=== PATIENT | female | born 2000 | race Caucasian/White ===

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

== ENCOUNTER 2019-03-10 21:22 | Emergency (ER) | payer OTHER ==
[~2019-03-10] VITALS: Ht 162.5 cm; Wt 105.7 kg
--- NOTE | ~2019-03-10 | EKG ---
[place], [place] ELECTROCARDIOGRAM REPORT NAME: NADEEM LIND UNIT #: [id number] ROOM: DOCTOR: EPIPHANY DRAFT REPORT BIRTHDATE: [birth year] [facility] Test Date: 2019-03-10 Test Time: 21:50:15 Pat Name: NADEEM LIND Department: Room: Gender: F Senior Safety Support Manager: : 2000 Requested By: CARLOS RODRIGUEZ Order Number: [id number] Reading MD: Ayde Dacosta MD Measurements Intervals [place] Rate: 79 P: 16 WI: 146 QRS: 42 QRSD: 90 T: 55 QT: 362 QTc: 416 Interpretive Statements Sinus rhythm ,Normal ECG Compared to ECG 11/10/2018 18:09:28 No significant changes Electronically Signed On 03-11-2019 9:14:36 PDT by Ayde Dacosta MD CM:EKGRPT:ELECTROCARDIOGRAM REPORT [id number] CARLOS TEAGUE DRAFT REPORT CARLOS RODRIGUEZ DO
[~2019-03-10 21:22] MED LIST changes: +ALLEGRA-D 24 H1 EACH PO; +AUGMENTIN 875875 MG PO; +FLONASE ALLERG9.9 ML NAS
[2019-03-10 21:48] LABS: BASO % 0.3 % (0.0-1.0); EOS # 0.3 10*3/uL (0.0-0.4); EOS % 2.1 % (1.0-4.0); HEMATOCRIT 41.5 % (37.0-47.0); HEMOGLOBIN 13.6 g/dl (12.0-16.0); LYMPH # 3.3 10*3/uL (1.3-4.4); LYMPH % 26.8 % (27.0-41.0); MEAN CELL VOLUME 87.4 fl (81.0-99.0); MEAN CORPUSCULAR HGB 28.6 pg (27.0-31.0); MEAN CORPUSCULAR HGB CONC 32.8 g/dl (33.0-37.0); MEAN PLATELET VOLUME 10.9 fl (9.6-12.3); MONO # 0.7 10*3/uL (0.1-1.0); MONO % 5.6 % (3.0-9.0); NEUT # 7.9 10*3/uL (2.3-7.9); NEUT % 64.9 % (47.0-73.0); PLATELET COUNT AUTOMATED 283 10*3/uL (130-400); RED BLOOD COUNT 4.75 10*6/uL (4.10-5.10); RED CELL DISTRI WIDTH 12.7 % (0-14.5); WHITE BLOOD COUNT 12.2 10*3/uL (4.8-10.8)
[2019-03-10 22:06] LABS: ALBUMIN 3.5 gm/dl (3.1-4.5); ALKALINE PHOSPHATASE 85 U/L (45-117); BETA-HCG, QUANT < 1.0 mIU/mL (1-3); BUN 12 mg/dl (7-24); CHLORIDE 108 mmol/L (98-107); CREATININE 0.74 mg/dL (0.55-1.02); POTASSIUM 3.6 mmol/L (3.5-5.1); SGOT/AST 17 IU/L (3-35); SGPT/ALT 24 U/L (12-78); SODIUM 141 mmol/L (136-145); TROPONIN I < 0.015 ng/ml (<0.045)
== END 2019-03-10 23:10 | disposition home or self-care (01) ==
LOC: ED 21:22
PROVIDERS: Student in an Organized Health Care Education/Training Program
DX: M43.6 Torticollis (principal)

== ENCOUNTER 2019-04-22 06:11 | Emergency (ER) | payer OTHER ==
[~2019-04-22] VITALS: Ht 162.5 cm; Wt 80.7 kg
[2019-04-22] MEDS ORDERED: ZITHROMAX250 MG PO (08:32)
== END 2019-04-22 09:10 | disposition home or self-care (01) ==
LOC: ED 06:11
DX: J40 Bronchitis, not specified as acute or chronic (principal)

== ENCOUNTER 2019-06-17 11:34 | Emergency (ER) | payer OTHER ==
[~2019-06-17] VITALS: Ht 162.5 cm; Wt 103.4 kg
[2019-06-17] MEDS ORDERED: PREDNISONE50 MG PO (13:37)
== END 2019-06-17 13:46 | disposition home or self-care (01) ==
LOC: ED 11:34
DX: J40 Bronchitis, not specified as acute or chronic (principal); M54.9 Dorsalgia, unspecified; F17.200 Nicotine dependence, unspecified, uncomplicated

== ENCOUNTER 2019-06-20 15:18 | Inpatient (IN) | payer OTHER ==
[~2019-06-20] VITALS: Ht 162.6 cm; Wt 106.7 kg
--- NOTE | ~2019-06-20 | PR ---
[place], [place] PROGRESS NOTE NAME: NADEEM LIND UNIT #: [id number] ROOM: 401 DOCTOR: RONIT LOCO MD BIRTHDATE: [birth year] DOS: 06/22/2019 SUBJECTIVE: The patient was noted with symptoms of coughing, chest pain, and sputum expectoration. She has been noted comfortable at this time, resting on the bed. Wheezing and shortness of breath and cough has been improving. Complaining of some pain with cough at lower portion of the chest wall, which is a muscular pain. OBJECTIVE: VITAL SIGNS: Noted normal temperature, respiratory rate of 18, heart rate of 67, blood pressure 111/64. Pulse oxygen saturation, rest on room air is 96% saturation. HEENT: Examination shows head was atraumatic. Eyes nonicterus. NECK: Supple. CARDIOVASCULAR: S1, S2 audible. LUNGS: Noted moderate decreased breath sounds, expiratory wheezing, no crackles. ABDOMEN: Soft and obese. EXTREMITIES: The patient without any edema. LABORATORY DATA: CBC: WBC count 13,000, remaining CBC was normal. BMP was noted normal BUN and creatinine. IMPRESSION: 1. The patient without any evidence of deep venous thromboembolism. At this time, the D-dimer to be done yesterday noted negative, which is attached to exclude any significant thromboembolism. 2. Acute exacerbation of bronchial asthma and bronchitis. 3. Chronic obesity. 4. Nicotine dependence. PLAN OF MANAGEMENT: Current plan of management we will continued for the next 24 hours. Consider discharge in the morning possibly on oral tapering dose of steroids as well as Other medications. In the meantime, no change in plan will be needed. [place], [place] PROGRESS NOTE NAME: NADEEM LIND UNIT #: [id number] ROOM: 401 DOCTOR: RONIT LOCO MD BIRTHDATE: [birth year] RONIT PAUL MD CM:PNTRANS [id number] RONIT BEATTY MD 06/22/19 1518 interface
--- NOTE | ~2019-06-20 | PR ---
[place], [place] PROGRESS NOTE NAME: NADEEM LIND UNIT #: [id number] ROOM: 401 DOCTOR: BEVERLY BEATTY MD,RONIT BIRTHDATE: [birth year] DOS: 06/24/2019 SUBJECTIVE: The patient remains comfortable at this time, resting on the bed. Coughing has been noted with gradual reduction. The chest pain has been decreasing. There were no symptoms of fever or chills or any hemoptysis. OBJECTIVE: VITAL SIGNS: Normal temperature, respiratory rate 18, heart rate 99, blood pressure 133/50. The pulse oxygen saturation at rest on room air 98% saturation. HEENT: Examination shows head was atraumatic. Eyes nonicterus. NECK: Supple. CARDIOVASCULAR: S1, S2 audible. LUNGS: Mild expiratory wheezing, no crackles. ABDOMEN: Soft, obese, nontender. Bowel sounds present. EXTREMITIES: No changes. LABORATORY DATA: CBC: WBC count 17.8, hemoglobin and hematocrit normal, platelet count normal. BMP this morning is normal. IMPRESSION: Stable respiratory status with favorable improvement, continue acute exacerbation of bronchial asthma, acute bronchitis. PLAN OF MANAGEMENT: No changes in the plan of management. Discharge planning as per primary care attending. Supportive therapy, usual medical management. Outpatient recommended post-discharge to the patient. RONIT PAUL MD CM:PNTRANS [id number] RONIT BEATTY MD 06/24/19 1247 interface
--- NOTE | ~2019-06-20 | PR ---
[place], [place] PROGRESS NOTE NAME: NADEEM LIND UNIT #: [id number] ROOM: 401 DOCTOR: BEVERLY BEATTY MD,RONIT BIRTHDATE: [birth year] DOS: 06/23/2019 PULMONARY PROGRESS NOTE SUBJECTIVE: She has been noted comfortable, still complaining of pain with the cough. The symptom of the patient's respiratory tract have been gradually improving at the present time. There were no symptoms of chest pain, fever or chills stated by the patient. There were no symptoms of hemoptysis. PHYSICAL EXAMINATION: GENERAL: The patient is sitting comfortably in the bed this morning of assessment. VITAL SIGNS: Normal temperature, respiratory rate 18, heart rate 77, blood pressure 113/71. Pulse ox saturation at rest on room air was 97% saturation recorded. HEENT: Examination shows head was atraumatic. Eyes nonicterus. NECK: Supple. CARDIOVASCULAR: S1, S2 is audible. LUNGS: The patient noted mild expiratory wheezing, no crackles. ABDOMEN: Soft, obese, nontender. Bowel sounds present. EXTREMITIES: No new change. IMPRESSION: 1. The patient with gradual progressive resolution of acute exacerbation of bronchial asthma and acute bronchitis noted at this time. 2. Musculoskeletal chest pain with cough as well. 3. History of nicotine abuse. PLAN OF MANAGEMENT: The patient could be considered home discharge today on tapering prednisone and other medications. Outpatient followup suggested post-discharge. RONIT PAUL MD CM:PNTRANS [id number] RONIT BEATTY MD 06/23/19 1248 interface
--- NOTE | ~2019-06-20 | EKG ---
[place], [place] ELECTROCARDIOGRAM REPORT NAME: NADEEM LIND UNIT #: [id number] ROOM: 401 DOCTOR: EPIPHANY DRAFT REPORT BIRTHDATE: [birth year] [facility] Test Date: 2019-06-20 Test Time: 15:53:49 Pat Name: NADEEM LIND Department: Room: 401 Gender: F Small Business Representative: : 2000 Requested By: RYAN KENDALL DNP Order Number: [id number] Reading MD: Raul Bauer MD Measurements Intervals [place] Rate: 122 P: 65 [place]: 148 QRS: 34 QRSD: 78 T: 32 QT: 333 QTc: 475 Interpretive Statements Sinus tachycardia Borderline T wave abnormalities Compared to ECG 03/10/2019 21:50:15 T-wave abnormality now present Sinus rhythm no longer present Electronically Signed On 06-23-2019 13:01:03 PDT by Raul Bauer MD CM:EKGRPT:ELECTROCARDIOGRAM REPORT [id number] RYAN KENDALL DNP EPIPHANY DRAFT REPORT RYAN KENDALL DNP
--- NOTE | ~2019-06-20 | CON ---
[place], [place] REPORT OF CONSULTATION NAME: NADEEM LIND UNIT #: [id number] ROOM: 401 DOCTOR: RONIT LOCO MD BIRTHDATE: [birth year] DOS: 06/21/2019 CONSULTATION REQUESTED BY: Hospitalist service. REASON FOR CONSULTATION: For assessment of possibility of pulmonary embolism and abnormal respiratory symptoms. HISTORY OF PRESENT ILLNESS: This is a 18-year-old female patient who has been treated by the primary care physician for possibility of bronchitis or other respiratory problems with antibiotics and other medical management. The patient was seen in the Emergency Room as outpatient on 06/17/2019 as stated with bronchitis. The symptoms had been noted gradually worsen. The patient did not respond to the outpatient treatment provided in the Emergency Room assessment as well per primary care physician. She developed significant shortness of breath with excessive chest congestion and cough with small amount of sputum expectoration, wheezing, tightness in the chest. Did not report any symptoms of chest pain. Denies any pain of the lower extremity ____. The patient had a CTA of the chest done as well because of tachycardia, which has been reported as pulmonary embolism in subsegmental branches cannot be excluded. REVIEW OF SYSTEMS: CONSTITUTIONAL SYMPTOMS: Fatigue and tiredness noted without any symptoms of fever or chills. EYES: Denies any burning, redness, or tenderness. EARS, NOSE, THROAT, EARS, NOSE, THROAT SYMPTOMS: No sore throat, hoarseness, otalgia, postnasal drainage or epistaxis. CARDIOVASCULAR: Denies anginal pain, edema, pain of the lower extremities. GASTROINTESTINAL: Denies dysphagia, nausea, vomiting, diarrhea, abdominal pain, hematemesis, melena, or hematochezia. SKIN: Denies any lesions or rashes. CENTRAL NERVOUS SYSTEM: No dizziness, headache, diplopia or syncopal episode. Remaining systems were reviewed. They were noted all negative. PAST MEDICAL HISTORY: 1. Known as history of recurrent bronchitis. 2. Morbid obesity. 3. Anxiety disorder. 4. History of scabies. 5. Nicotine dependence. PAST SURGICAL HISTORY: Noted none major. SOCIAL HISTORY: The patient noted tobacco use for the last 3 years, 1 pack of cigarettes per day. She is not , does not have any children. FAMILY HISTORY: The patient's father patient known with history of bronchial asthma and mother with diagnosis of COPD. HOME MEDICATIONS: Noted as use of ProAir HFA inhaler p.r.n. use. [place], [place] REPORT OF CONSULTATION NAME: NADEEM LIND UNIT #: [id number] ROOM: [facility] DOCTOR: BEVERLY BEATTY MD,RONIT BIRTHDATE: [birth year] CURRENT MEDICATIONS: Administered on this hospitalization reviewed as use of Lovenox for DVT prophylaxis ____ Solu-Medrol 40 mg b.i.d., albuterol sulfate nebulizers q.i.d., Mucinex 1200 mg p.o. b.i.d., DuoNeb every 6 hours, doxycycline intravenously and other p.r.n. meds. DRUG ALLERGIES: Noted no known drug allergies. PHYSICAL EXAMINATION: GENERAL: This is a 18-year-old female patient noted comfortably sitting on the bed without any distress. Height of 5 feet 4 inches, weight of 235 pounds, BMI 40.4. VITAL SIGNS: Normal temperature since admission, respiratory rate 16-20, heart rate of 111-76, blood pressure 122/77-126/54. The pulse oxygen saturation recorded at rest on room air 95-100% saturation. HEENT: Head was atraumatic. Eyes nonicterus. NECK: Supple. Decreased posterior pharyngeal space, high tongue with guarding soft tissue structures. CARDIOVASCULAR: S1, S2 audible. LUNGS: Decreased breath sounds, mild expiratory wheezing in the lungs bilaterally. ABDOMEN: Soft and obese. Bowel sounds present. EXTREMITIES: No edema, clubbing, cyanosis. MUSCULOSKELETAL: Without acute deformities. CENTRAL NERVOUS SYSTEM: Grossly intact. LABORATORY DATA: CBC that was done yesterday in the emergency room, WBC count 13.9, hemoglobin and hematocrit was normal. Eosinophils are 2.9%. CMP that was done on 06/20/2019, normal BUN and creatinine and other electrolytes as well. Troponin was normal. PT/PTT normal. Lactic acid normal yesterday. CBC this morning, WBC count 12.4, hemoglobin and hematocrit normal, platelet count normal. CMP with normal BUN and creatinine, glucose 123. PT/PTT were normal. The chest x-ray that was done yesterday in the Emergency Room, 2-view, noted clear of any acute pulmonary filtration other abnormalities. The chest x-ray 06/17/2019 during her ER assessment was also noted as no acute pulmonary abnormalities. CTA of the chest was noted without any evidence of gross pulmonary embolism, questionable patient artifact. The patient had a pulmonary embolism, lower pulmonary artery branch reported by the radiologist report personally reviewed was not noting any convincing, finding of acute pulmonary embolism as well. IMPRESSION: 1. The patient will be currently admitted to the hospital with a finding consistent with acute asthmatic bronchitis with bronchial asthma, acute exacerbation, failed to respond to the outpatient treatment. 2. Pulmonary embolism stated by the patient appeared to be less likely with current clinical history and physical examination with assessment. Mild hyperglycemia related to corticosteroid, chronic nicotine dependence by history as well. [place], [place] REPORT OF CONSULTATION NAME: NADEEM LIND UNIT #: [id number] ROOM: [facility] DOCTOR: BEVERLY BEATTY MD,RONIT BIRTHDATE: [birth year] PLAN OF MANAGEMENT: Agree with the use of bronchodilators and oxygen supplementation if necessary. Maintain pulse ox 90% or greater. Continuation of Solu-Medrol at the same dose. IV doxycycline, which was ordered does not need intravenous use or should medications should suffice. The tachycardia will resolve patient progressively with resolution of acute exacerbation of bronchial asthma. Counseling about tobacco cessation was done. DVT prophylaxis will be continued. D-dimer will be obtained to basically exclude any thromboembolic disease. The positive D-dimer would not be of any benefit. The patient was not recommended to be started on therapeutic anticoagulation unless the diagnosis of thromboembolism is proven with additional assessment as necessary. The assessment and management discussed with the patient's mother as well in detail in the room. Supportive therapy, plan of management additional treatment changes will be made for this patient based on progression of her illness. Thanks for allowing me to participate in the care of this patient. RONIT PAUL MD CM:CONSTR:REPORT OF CONSULTATION 162 06/21/191958 interface
[~2019-06-20 15:18] MED LIST changes: +PREDNISONE50 MG PO
[2019-06-20 15:21] VITALS: BP 123/77
[2019-06-20 15:46] LABS: BASO % 0.2 % (0.0-1.0); EOS # 0.4 10*3/uL (0.0-0.4); EOS % 2.9 % (1.0-4.0); HEMATOCRIT 45.5 % (37.0-47.0); LYMPH # 1.7 10*3/uL (1.3-4.4); LYMPH % 12.2 % (27.0-41.0); MEAN CELL VOLUME 88.9 fl (81.0-99.0); MEAN CORPUSCULAR HGB 29.3 pg (27.0-31.0); MEAN PLATELET VOLUME 10.9 fl (9.6-12.3); MONO # 0.8 10*3/uL (0.1-1.0); MONO % 5.5 % (3.0-9.0); NEUT % 78.8 % (47.0-73.0); PLATELET COUNT AUTOMATED 302 10*3/uL (130-400); RED BLOOD COUNT 5.12 10*6/uL (4.10-5.10); RED CELL DISTRI WIDTH 13.2 % (0-14.5); WHITE BLOOD COUNT 13.9 10*3/uL (4.8-10.8)
[2019-06-20 16:01] LABS: ALBUMIN 3.6 gm/dl (3.1-4.5); ALKALINE PHOSPHATASE 68 U/L (45-117); BUN 13 mg/dl (7-24); CHLORIDE 107 mmol/L (98-107); CREATININE 1.07 mg/dL (0.55-1.02); LIPASE 151 U/L (73-393); POTASSIUM 3.8 mmol/L (3.5-5.1); SGOT/AST 16 IU/L (3-35); SGPT/ALT 24 U/L (12-78); SODIUM 138 mmol/L (136-145); TOTAL PROTEIN 8.2 gm/dL (6.4-8.2)
[2019-06-20 16:02] LABS: TROPONIN I < 0.015 ng/ml (<0.045)
[2019-06-20 16:03] LABS: ACT PARTIAL THROMBO TIME 30.1 SECONDS (20.0-32.1); INTERNATIONAL NORM RATIO 0.9 (2.0-3.5)
[2019-06-20] MEDS ORDERED: AVPAK AZITHROM250 M1 PO (16:03)
[2019-06-20] MEDS ORDERED: PROAIR HFA8.5 GM INH (16:05)
[2019-06-20 16:53] VITALS: BP 98/60
[2019-06-20 16:59] LABS: BILIRUBIN NEGATIVE (NEGATIVE); BLOOD NEGATIVE (NEGATIVE); CLARITY CLEAR (CLEAR); COLOR YELLOW (YELLOW); GLUCOSE NEGATIVE (NEGATIVE); KETONE NEGATIVE (NEGATIVE); LEUKO ESTERASE NEGATIVE (NEGATIVE); NITRITE NEGATIVE (NEGATIVE); PH 6.5 (5.0-9.0)
[2019-06-20 20:35] VITALS: BP 123/68
[2019-06-21] VITALS: BP 97/60
[2019-06-21 06:03] LABS: ALBUMIN 3.3 gm/dl (3.1-4.5); ALKALINE PHOSPHATASE 58 U/L (45-117); BUN 8 mg/dl (7-24); CHLORIDE 111 mmol/L (98-107); CHOLESTEROL 137 mg/dL (<200); CREATININE 0.66 mg/dL (0.55-1.02); HDL CHOLESTEROL 50 mg/dl (40-60); LDL CHOLESTEROL 77 mg/dL (9-159); PHOSPHOROUS 3.7 mg/dL (2.5-4.9); POTASSIUM 4.2 mmol/L (3.5-5.1); SGOT/AST 13 IU/L (3-35); SGPT/ALT 24 U/L (12-78); SODIUM 140 mmol/L (136-145); TOTAL PROTEIN 7.5 gm/dL (6.4-8.2); TRIGLYCERIDES 49 mg/dl (<150); VLDL CHOLESTEROL 10 mg/dL (6-40)
[2019-06-21 06:08] LABS: THYROID STIM HORMONE (HS) 0.826 uIU/ml (0.358-4.75)
[2019-06-21 06:11] LABS: BASO % 0.2 % (0.0-1.0); HEMATOCRIT 42.5 % (37.0-47.0); LYMPH # 0.9 10*3/uL (1.3-4.4); LYMPH % 7.6 % (27.0-41.0); MEAN CELL VOLUME 87.6 fl (81.0-99.0); MEAN CORPUSCULAR HGB 28.9 pg (27.0-31.0); MEAN CORPUSCULAR HGB CONC 32.9 g/dl (33.0-37.0); MEAN PLATELET VOLUME 11.1 fl (9.6-12.3); MONO # 0.5 10*3/uL (0.1-1.0); MONO % 3.8 % (3.0-9.0); NEUT # 10.9 10*3/uL (2.3-7.9); NEUT % 88.1 % (47.0-73.0); PLATELET COUNT AUTOMATED 280 10*3/uL (130-400); RED BLOOD COUNT 4.85 10*6/uL (4.10-5.10); RED CELL DISTRI WIDTH 13.2 % (0-14.5); WHITE BLOOD COUNT 12.4 10*3/uL (4.8-10.8)
[2019-06-21 06:55] LABS: ACT PARTIAL THROMBO TIME 33.7 SECONDS (20.0-32.1)
[2019-06-21 08:00] VITALS: BP 126/54
[2019-06-21 08:28] LABS: VITAMIN D, 25-HYDROXY 12.8 ng/mL (30-100)
[2019-06-21 12:00] VITALS: BP 122/70
[2019-06-21 16:00] VITALS: BP 107/56
[2019-06-21 20:00] VITALS: BP 112/73
[2019-06-21 23:55] VITALS: BP 109/52
[2019-06-22 06:20] LABS: BASO % 0.2 % (0.0-1.0); HEMATOCRIT 43.4 % (37.0-47.0); HEMOGLOBIN 14.1 g/dl (12.0-16.0); LYMPH # 1.4 10*3/uL (1.3-4.4); LYMPH % 10.6 % (27.0-41.0); MEAN CELL VOLUME 90.2 fl (81.0-99.0); MEAN CORPUSCULAR HGB 29.3 pg (27.0-31.0); MEAN CORPUSCULAR HGB CONC 32.5 g/dl (33.0-37.0); MEAN PLATELET VOLUME 11.4 fl (9.6-12.3); MONO # 0.4 10*3/uL (0.1-1.0); MONO % 3.4 % (3.0-9.0); NEUT # 11.1 10*3/uL (2.3-7.9); NEUT % 85.2 % (47.0-73.0); PLATELET COUNT AUTOMATED 298 10*3/uL (130-400); RED BLOOD COUNT 4.81 10*6/uL (4.10-5.10); RED CELL DISTRI WIDTH 13.3 % (0-14.5)
[2019-06-22 06:32] LABS: BUN 12 mg/dl (7-24); CHLORIDE 108 mmol/L (98-107); CREATININE 0.73 mg/dL (0.55-1.02); POTASSIUM 4.4 mmol/L (3.5-5.1); SODIUM 140 mmol/L (136-145)
[2019-06-22 08:00] VITALS: BP 121/78
[2019-06-22 12:00] VITALS: BP 111/64
[2019-06-22 16:00] VITALS: BP 130/79
[2019-06-22 20:00] VITALS: BP 128/89
[2019-06-23] VITALS: BP 113/61
[2019-06-23 08:00] VITALS: BP 113/71
[2019-06-23 12:00] VITALS: BP 125/89
[2019-06-23 16:00] VITALS: BP 126/82
[2019-06-23 20:00] VITALS: BP 154/86
[2019-06-24] VITALS: BP 108/80
[2019-06-24 07:10] LABS: BASO % 0.1 % (0.0-1.0); HEMATOCRIT 46.9 % (37.0-47.0); LYMPH # 1.7 10*3/uL (1.3-4.4); LYMPH % 9.8 % (27.0-41.0); MEAN CORPUSCULAR HGB 28.5 pg (27.0-31.0); MONO # 0.5 10*3/uL (0.1-1.0); MONO % 2.7 % (3.0-9.0); NEUT # 14.7 10*3/uL (2.3-7.9); NEUT % 86.8 % (47.0-73.0); PLATELET COUNT AUTOMATED 342 10*3/uL (130-400); RED BLOOD COUNT 5.27 10*6/uL (4.10-5.10); RED CELL DISTRI WIDTH 13.1 % (0-14.5)
[2019-06-24 07:30] LABS: BUN 17 mg/dl (7-24); CHLORIDE 107 mmol/L (98-107); CREATININE 0.67 mg/dL (0.55-1.02); POTASSIUM 4.2 mmol/L (3.5-5.1); SODIUM 138 mmol/L (136-145)
[2019-06-24 08:00] VITALS: BP 133/50
[2019-06-24] MEDS ORDERED: VITAMIN D5000 UNI1 PO (09:00)
[2019-06-24] MEDS ORDERED: PREDNISONE10 MG PO (09:00)
[2019-06-24] MEDS ORDERED: DOXYCYCLINE MO100 M1 PO (09:00)
== END 2019-06-24 11:22 | disposition home or self-care (01) | DRG 720 ==
LOC: ED 15:18 → EDHOLD 19:40 → 4E 19:40
PROVIDERS: Hospitalist; Internal Medicine; Nurse Practitioner Family; ADMIT Family Medicine
DX: A41.9 Sepsis, unspecified organism (principal); I26.09 Other pulmonary embolism with acute cor pulmonale; N17.0 Acute kidney failure with tubular necrosis; J18.9 Pneumonia, unspecified organism; E66.01 Morbid (severe) obesity due to excess calories; E83.41 Hypermagnesemia; J45.901 Unspecified asthma with (acute) exacerbation; Z68.41 Body mass index [BMI] 40.0-44.9, adult; J20.9 Acute bronchitis, unspecified; F17.210 Nicotine dependence, cigarettes, uncomplicated; F41.9 Anxiety disorder, unspecified; R73.9 Hyperglycemia, unspecified; T38.0X5A Adverse effect of glucocorticoids and synthetic analogues, initial encounter; Y92.89 Other specified places as the place of occurrence of the external cause; Z87.01 Personal history of pneumonia (recurrent); Z82.5 Family history of asthma and other chronic lower respiratory diseases; Z71.6 Tobacco abuse counseling

== ENCOUNTER 2019-11-01 20:13 | Emergency (ER) | payer OTHER ==
[~2019-11-01] VITALS: Ht 162.5 cm; Wt 111.1 kg
[~2019-11-01 20:13] MED LIST changes: +AVPAK AZITHROM250 M1 PO; +DOXYCYCLINE MO100 M1 PO; +PREDNISONE10 MG PO; +PROAIR HFA8.5 GM INH; +VITAMIN D5000 UNI1 PO
[2019-11-01] MEDS ORDERED: AMOXICILLIN500 M2 PO (21:21)
== END 2019-11-01 21:35 | disposition home or self-care (01) ==
LOC: ED 20:13
DX: J02.0 Streptococcal pharyngitis (principal); Z79.899 Other long term (current) drug therapy

== ENCOUNTER 2020-06-14 06:31 | Emergency (ER) | payer OTHER ==
[~2020-06-14] VITALS: Ht 162.5 cm; Wt 79.4 kg
[~2020-06-14 06:31] MED LIST changes: +AMOXICILLIN500 M2 PO
[2020-06-14] MEDS ORDERED: PROAIR HFA8.5 GM INH (08:31)
[2020-06-14] MEDS ORDERED: DOXYCYCLINE100 M3 PO (08:31)
[2020-06-14] MEDS ORDERED: PREDNISONE10 MG PO (08:31)
== END 2020-06-14 08:34 | disposition home or self-care (01) ==
LOC: ED 06:31
DX: J20.9 Acute bronchitis, unspecified (principal)

== ENCOUNTER → 2020-08-09 | Outpatient (CLI) | payer OTHER ==
[~2020-08-09] MED LIST changes: +DOXYCYCLINE100 M3 PO
== END | disposition home or self-care (01) ==
LOC: RAD 11:29
PROVIDERS: ATTEND Family Medicine
DX: R05 Cough (principal); R50.9 Fever, unspecified

== ENCOUNTER 2020-10-08 06:30 | Emergency (ER) | payer OTHER ==
[~2020-10-08] VITALS: Ht 162.5 cm; Wt 86.2 kg
[2020-10-08] MEDS ORDERED: SEPTDS PO (06:45)
== END 2020-10-08 06:50 | disposition home or self-care (01) ==
LOC: ED 06:30
DX: L03.114 Cellulitis of left upper limb (principal); Z79.899 Other long term (current) drug therapy

== ENCOUNTER → 2020-12-30 | Outpatient (CLI) | payer OTHER ==
[2020-12-30 14:54] LABS: BASO % 0.4 % (0.0-1.0); EOS # 0.1 10*3/uL (0.0-0.4); EOS % 1.7 % (1.0-4.0); HEMATOCRIT 42.3 % (37.0-47.0); LYMPH # 1.6 10*3/uL (1.3-4.4); LYMPH % 19.4 % (27.0-41.0); MEAN CORPUSCULAR HGB 28.7 pg (27.0-31.0); MEAN CORPUSCULAR HGB CONC 31.9 g/dl (33.0-37.0); MEAN PLATELET VOLUME 10.9 fl (9.6-12.3); MONO # 0.5 10*3/uL (0.1-1.0); MONO % 5.8 % (3.0-9.0); NEUT % 72.5 % (47.0-73.0); PLATELET COUNT AUTOMATED 260 10*3/uL (130-400); RED CELL DISTRI WIDTH 12.7 % (0-14.5); WHITE BLOOD COUNT 8.3 10*3/uL (4.8-10.8)
[2020-12-30 15:22] LABS: ALBUMIN 3.3 gm/dl (3.1-4.5); BUN 12 mg/dl (7-24); CHLORIDE 108 mmol/L (98-107); CHOLESTEROL 133 mg/dL (<200); CREATININE 0.77 mg/dL (0.55-1.02); POTASSIUM 4.3 mmol/L (3.5-5.1); SGOT/AST 13 IU/L (3-35); SGPT/ALT 34 U/L (12-78); SODIUM 139 mmol/L (136-145)
[2020-12-30 15:43] LABS: ALKALINE PHOSPHATASE 72 U/L (45-117); LDL CHOLESTEROL 83 mg/dL (9-159); TOTAL PROTEIN 7.2 gm/dL (6.4-8.2); TRIGLYCERIDES 71 mg/dl (<150)
[2020-12-30 15:46] LABS: BETA-HCG, QUANT < 1.0 mIU/mL (1-3)
[2020-12-31 08:08] LABS: FOLLICLE STIMULATING HORMONE 3.5 mIU/mL (.); LUTEINIZING HORMONE 5.6 mIU/mL (.); PROLACTIN 18.7 ng/mL (4.8-23.3)
== END | disposition home or self-care (01) ==
LOC: LAB 14:19
PROVIDERS: ATTEND Nurse Practitioner Family
DX: Z13.220 Encounter for screening for lipoid disorders (principal); E66.01 Morbid (severe) obesity due to excess calories; N91.2 Amenorrhea, unspecified; R73.9 Hyperglycemia, unspecified

== ENCOUNTER 2021-01-30 05:01 | Emergency (ER) | payer OTHER ==
[~2021-01-30] VITALS: Ht 162.5 cm; Wt 77.1 kg
== END 2021-01-30 06:41 | disposition home or self-care (01) ==
LOC: ED 05:01
DX: S06.0X9A Concussion with loss of consciousness of unspecified duration, initial encounter (principal); S00.83XA Contusion of other part of head, initial encounter; Z79.899 Other long term (current) drug therapy; Y08.89XA Assault by other specified means, initial encounter; Y93.89 Activity, other specified; Y92.89 Other specified places as the place of occurrence of the external cause; Y99.8 Other external cause status

== ENCOUNTER → 2021-06-07 | Outpatient (CLI) | payer OTHER | END | disposition home or self-care (01) | LOC: RAD 13:25 | PROVIDERS: ATTEND Family Medicine | DX: U07.1 COVID-19 (principal) ==

== ENCOUNTER 2021-10-02 00:49 | Emergency (ER) | payer OTHER ==
[~2021-10-02] VITALS: Ht 170.1 cm; Wt 79.4 kg
[2021-10-02 01:50] LABS: BASO % 0.3 % (0.0-1.0); EOS # 0.2 10*3/uL (0.0-0.4); HEMATOCRIT 37.4 % (37.0-47.0); LYMPH # 2.3 10*3/uL (1.3-4.4); LYMPH % 25.7 % (27.0-41.0); MEAN CORPUSCULAR HGB 29.5 pg (27.0-31.0); MONO # 0.7 10*3/uL (0.1-1.0); MONO % 7.4 % (3.0-9.0); NEUT # 5.8 10*3/uL (2.3-7.9); NEUT % 64.4 % (47.0-73.0); PLATELET COUNT AUTOMATED 261 10*3/uL (130-400); RED CELL DISTRI WIDTH 12.9 % (0-14.5); WHITE BLOOD COUNT 8.9 10*3/uL (4.8-10.8)
[2021-10-02 02:01] LABS: ACT PARTIAL THROMBO TIME 32.5 SECONDS (20.0-32.1)
[2021-10-02 02:06] LABS: ALBUMIN 3.4 gm/dl (3.1-4.5); ALKALINE PHOSPHATASE 62 U/L (45-117); BUN 13 mg/dl (7-24); CHLORIDE 109 mmol/L (98-107); CREATININE 0.66 mg/dL (0.55-1.02); POTASSIUM 3.7 mmol/L (3.5-5.1); SGOT/AST 20 IU/L (3-35); SGPT/ALT 28 U/L (12-78); SODIUM 140 mmol/L (136-145)
== END 2021-10-02 05:39 | disposition home or self-care (01) ==
LOC: ED 00:49
PROVIDERS: Emergency Medicine
DX: R07.9 Chest pain, unspecified (principal); F41.9 Anxiety disorder, unspecified

== ENCOUNTER 2022-05-13 14:29 | Emergency (ER) | payer OTHER ==
[~2022-05-13] VITALS: Ht 162.5 cm; Wt 113.4 kg
[2022-05-13 17:04] LABS: BILIRUBIN Negative (Negative); BLOOD Negative (Negative); CLARITY Cloudy (Clear); COLOR Yellow (Yellow); GLUCOSE Negative (Negative); KETONE Negative (Negative); LEUKO ESTERASE 1+ (Negative); NITRITE Negative (Negative); PH 5.5 (4.5-8.0); SPECIFIC GRAVITY 1.025 (1.001-1.030); UROBILINOGEN 0.2 E.U./dl (0.0-1.0)
[2022-05-13 17:10] LABS: BACTERIA 2+; EPITHELIAL CELLS 21-30
[2022-05-13] MEDS ORDERED: SEPTDS PO (17:40)
[2022-05-13] MEDS ORDERED: PREDNISONE20 M1 PO (17:40)
[2022-05-13] MEDS ORDERED: METHOCARBAMOL500 M1 PO (17:40)
== END 2022-05-13 18:11 | disposition home or self-care (01) ==
LOC: ED 14:29
PROVIDERS: Physician Assistant
DX: R30.0 Dysuria (principal); M54.41 Lumbago with sciatica, right side; F17.200 Nicotine dependence, unspecified, uncomplicated; Z79.899 Other long term (current) drug therapy; Z79.2 Long term (current) use of antibiotics

== ENCOUNTER → 2022-10-04 | Outpatient (CLI) | payer OTHER ==
[~2022-10-04] MED LIST changes: +METHOCARBAMOL500 M1 PO; +PREDNISONE20 M1 PO
[2022-10-04 11:15] LABS: MEAN CELL VOLUME 87.7 fl (81.0-99.0); MEAN CORPUSCULAR HGB 29.2 pg (27.0-31.0); MEAN CORPUSCULAR HGB CONC 33.3 g/dl (33.0-37.0); MEAN PLATELET VOLUME 10.5 fl (9.6-12.3); RED BLOOD COUNT 4.56 10*6/uL (4.10-5.10); RED CELL DISTRI WIDTH 12.7 % (0-14.5); WHITE BLOOD COUNT 8.1 10*3/uL (4.8-10.8)
[2022-10-04 11:52] LABS: ALKALINE PHOSPHATASE 58 U/L (46-116); BUN 13 mg/dl (9-23); CHLORIDE 104 mmol/L (98-107); CHOLESTEROL 130 mg/dL (<200); FREE T4 1.05 ng/dl (0.89-1.76); LDL CHOLESTEROL 76 mg/dL (9-159); SGPT/ALT 25 U/L (10-49); THYROID STIM HORMONE (HS) 1.214 uIU/ml (0.550-4.780); TRIGLYCERIDES 66 mg/dl (<150)
[2022-10-08 06:36] LABS: TESTOSTERONE FREE, (DIRECT) 2.1 pg/mL (0.0-4.2)
== END | disposition home or self-care (01) ==
LOC: LAB 10:45
PROVIDERS: ATTEND Family Medicine
DX: Z00.00 Encounter for general adult medical examination without abnormal findings (principal); L68.0 Hirsutism; E74.9 Disorder of carbohydrate metabolism, unspecified; R63.5 Abnormal weight gain; E78.00 Pure hypercholesterolemia, unspecified

== ENCOUNTER 2023-08-18 21:46 | Emergency (ER) | payer MEDICAID ==
[~2023-08-18] VITALS: Ht 162.5 cm; Wt 111.1 kg
[2023-08-19] MEDS ORDERED: BENZONATATE100 M1 PO (02:14)
[2023-08-19] MEDS ORDERED: ZITHROMAX250 MG PO (02:14)
== END 2023-08-19 02:23 | disposition home or self-care (01) ==
LOC: ED 21:46
DX: J40 Bronchitis, not specified as acute or chronic (principal); Z20.822 Contact with and (suspected) exposure to COVID-19; J06.9 Acute upper respiratory infection, unspecified; F41.9 Anxiety disorder, unspecified; E66.01 Morbid (severe) obesity due to excess calories; F17.200 Nicotine dependence, unspecified, uncomplicated; Z79.899 Other long term (current) drug therapy; Z79.2 Long term (current) use of antibiotics; Z68.41 Body mass index [BMI] 40.0-44.9, adult

== ENCOUNTER 2024-09-07 16:18 | Emergency (ER) | payer SELFPAY ==
[~2024-09-07] VITALS: Ht 162.5 cm; Wt 104.3 kg
[~2024-09-07 16:18] MED LIST changes: +BENZONATATE100 M1 PO
[2024-09-07] MEDS ORDERED: Albuterol Sulfate 2.5 MG/3 ML VIAL NEB ONE (16:50)
[2024-09-07] MEDS ORDERED: AZITHROMYCIN 250 MG TAB PO ONE (18:10)
[2024-09-07] MEDS ORDERED: ALBUTEROL 8 GM INHALER INH ONE (18:15)
[2024-09-07] MEDS ORDERED: AVPAK AZITHROM250 M1 PO (18:23)
== END 2024-09-07 18:17 | disposition home or self-care (01) ==
LOC: ED 16:18
DX: J98.4 Other disorders of lung (principal); F17.290 Nicotine dependence, other tobacco product, uncomplicated